=== PATIENT | female | born 1935 | race Caucasian/White ===

== ENCOUNTER → 2018-09-21 | Outpatient (CLI) | payer MEDICARE, BC ==
[~2018-09-21] MED LIST: AMOXICILLIN 50500 MG PO; ASPIRIN 81M81 MG/TA2 PO; B-121000 MCG PO; BIAXIN 500MG T500 MG PO; BLUEBERRY EXTRACT PO; CALCIUM 600-D 61 TAB PO; CARAFATE 1GM1 G PO; CENTRUM SILVER1 TAB PO; DITROPAN 5MG TAB5 MG PO; FLONASE NASAL S16 GM; GRAPESEED EXTRACT PO; GREEN TEA PO; MAGNESIUM CHELA27 MG PO; MASON NATURAL1200 MG PO; METAMUCIL3.4 GM/DOS PO; NATURAL E400 IU PO; NATURAL POTASS595 MG PO; NATURE'S BLEND100 M2 PO; NIACOR500 MG PO; NORVASC2.5 MG PO; PHARMASSURE GA500 MG PO; PHARMASSURE ZIN50 MG PO; PRINZIDE 12.5 M1 TA1 PO; PROTONIX 40MG T40 MG PO; TENORMIN 2525 MG/TAB PO; THE MEDICINE S200 M2 PO; TURMERIC500 MG PO; VITAMIN B-6100 MG PO; VITAMIN C500 MG PO; VITAMIN D 1001000 IU PO; VITAMIN K2 PO; ZOCOR 20MG20 MG PO; [UNRECOGNIZED DRUG - OTHER] PO; [UNRECOGNIZED DRUG - OTHER] PO; [UNRECOGNIZED DRUG - OTHER] PO
== END ==
LOC: COL.RAD 10:21
DX: S22.060A Wedge compression fracture of T7-T8 vertebra, initial encounter for closed fracture (principal); S22.070A Wedge compression fracture of T9-T10 vertebra, initial encounter for closed fracture